=== PATIENT | female | born 2000 ===

== ENCOUNTER 2021-06-11 13:23 | Emergency (ER) | payer MEDICAID ==
[2021-06-11] MEDS ORDERED: Fluorescein 1 MG Ophth Strip EYERT ONE (13:44)
[2021-06-11] MEDS ORDERED: Tetracaine HCl/PF 0.5% 4 ML Bottle EYERT ONE (13:45)
[2021-06-11] MEDS ORDERED: Sulfacetamide 10% Ophth Soln 15 ML Bottle EYERT ONE (14:08)
[2021-06-11] MEDS ORDERED: Ibuprofen 600 MG Tab PO ONE (14:09)
== END 2021-06-11 15:00 | disposition home or self-care (01) ==
LOC: MW.ED 13:23
DX: T26.11XA Burn of cornea and conjunctival sac, right eye, initial encounter (principal); S05.01XA Injury of conjunctiva and corneal abrasion without foreign body, right eye, initial encounter; X08.0 Exposure to bed fire
CPT/HCPCS: 99283; A9270